=== PATIENT | female | born 1975 | race Caucasian/White ===

== ENCOUNTER 2019-07-10 08:50 | Outpatient (RCR) | payer OTHER, SELFPAY ==
--- NOTE | 2019-07-23 09:56 | PCPTNOTE ---
07/23/19 Annetta cancelled appt today. LJ
--- NOTE | 2019-07-30 09:20 | PCPTNOTE ---
07/30/19 patient did not show for scheduled appt. ANUM
--- NOTE | 2019-08-14 09:16 | PCPTNOTE ---
08/14/19 called and patient cancelled due to schedule conflict. RAIMUNDO
--- NOTE | 2019-10-13 08:44 | PCPTNOTE ---
10/13/19 - patient has not been to therapy in several weeks or months. patient has been called and no return calls have been made to finish out the POC. as of this date, patient will be DC'd from skilled PT and all progress towards goals will be taken from the most recent evaluation/note. HALEIGH
== END 2019-08-11 23:59 | disposition home or self-care (01) ==
LOC: CHSPT 08:50
PROVIDERS: Visit Provider Orthopaedic Surgery
DX: M25.562 Pain in left knee (principal); M75.41 Impingement syndrome of right shoulder
CPT/HCPCS: 97014; 97110; 97140; G0283

== ENCOUNTER 2020-01-20 09:55 | Outpatient (CLI) | payer OTHER, SELFPAY ==
[2020-01-20 10:06] LABS: Hematocrit 41.8 % (35.0-49.0); Hemoglobin 13.9 g/dL (12.0-15.0); Mean Corpuscular HGB Conc 33.3 g/dL (32.0-36.0); Mean Corpuscular Hemoglobin 29.1 pg (27.0-31.0); Mean Corpuscular Volume 87.6 fL (78.0-102.0); Mean Platelet Volume 9.9 fl (9.2-11.8); Platelet Count Result 317 K/mm3 (150-420); Red Blood Count 4.77 M/mm3 (4.20-5.40); Red Cell Distribution Width 13.1 % (11.6-14.4); White Blood Count 6.5 K/mm3 (4.8-10.8)
[2020-01-20 11:01] LABS: Alanine Aminotransferase 24 U/L (14-59); Alkaline Phosphatase 71 U/L (46-116); Anion Gap 14.6 mmol/L (7-16); Aspartate Amino Transferase 16 U/L (15-37); Bilirubin,Total 0.5 mg/dL (0.00-1.00); Blood Urea Nitrogen 18 mg/dL (7-18); Calcium 9.3 mg/dL (8.5-10.1); Carbon Dioxide 28 mmol/L (21-32); Chloride 104 mmol/L (98-108); Cholesterol 210 mg/dL (0-200); Estimated Glomerular Filt Rate > 60; Glucose 96 mg/dL (70-99); HDL Direct 47 mg/dL (40-60); LDL Cholesterol Calculated 143 mg/dL (<130); Osmolality Calculated 295 mOsm/kg (285-295); Potassium 4.6 mmol/L (3.5-5.1); Sodium 142 mmol/L (136-145); Triglycerides 102 mg/dL (0-150)
[2020-01-20 11:04] LABS: Thyroid Stimulating Hormone Reflex 2.32 u/IU/mL (0.36-3.74)
== END 2020-01-20 09:56 | disposition home or self-care (01) ==
LOC: CHSLAB 09:59
PROVIDERS: PCP Family Medicine; Visit Provider Family Medicine
DX: F32.9 Major depressive disorder, single episode, unspecified (principal)
CPT/HCPCS: 36415; 80053; 80061; 84443; 85027

== ENCOUNTER 2020-02-16 15:11 | Outpatient (RCR) | payer OTHER, SELFPAY ==
--- NOTE | 2020-02-16 16:12 | PTOPEVAL ---
Thank you for referring Annetta Goldstein to [facility]. Please review, sign, date and return this plan of care MARY. I agree with and certify that the following plan of care is medically necessary. Referring Physician Date Admitting Provider: Attending Provider: PHYSICIAN NOT ON STAFF Referring Provider: *PT Outpatient Evaluation Start: 02/16/20 15:18 Freq: Status: Active Protocol: Document 02/16/20 15:15 Pal (Rec: 02/16/20 15:56 [facility] [email or web address]) Therapy Assessment Status Assessment Status Assessment Status Evaluation Evaluation Information Problem Diagnosis R shoulder s/p labral and biceps surgery Onset 02/08/20 Additional Evaluation Detail quick dash = Subjective Information patient reports she initially Query Text:As Reported By Patient/ injured the R shoulder about 1 Family year ago. she reports she did therapy a fews times, but ultimately had surgery on the R shoulder on 02/08/20. she reports she had some work done to her labrum and her biceps tendon, but reports she is not exaclty sure what was repaired or how. she reports she is not wearing a sling at this time. she reports she does not believe she has any restrictions. Prior Level of Function Comments Additional Prior Level of Function prior to surgery, patient had Comments pain in the R shoulder and was increased in pain with all home, rec, and self care activities. Pain Assessment Timing of Pain Assessment Timing of Pain Assessment Assessment Pain Scale Pain Scale Used Numeric (1 - 10) Self Report Pain Assessment Right Shoulder(s) Reported Pain Level 2 Pain Description Aching,Dull Lowest Pain Intensity 1 Greatest Pain Intensity 4 Pain Score Pain Score 2: Self Report Upper Extremity Range of Motion Scapular/ Shoulder Range of Motion Right Shoulder Flexion - Active 85 Shoulder Flexion - Passive 130 Shoulder Medial Rotation - Active 70 Shoulder Medial Rotation - Active not tested Query Text:Reach Behind the Back Shoulder Lateral Rotation - Active 60 Shoulder Lateral Rotation - Active not tested Query Text:Reach Behind the Head Left Shoulder Flexion - Active 155 Shoulder Flexion - Passive
--- NOTE | 2020-03-28 11:30 | PTOPEVAL ---
Thank you for referring Annetta Goldstein to [facility]. Please review, sign, date and return this plan of care MARY. I agree with and certify that the following plan of care is medically necessary. Referring Physician Date Admitting Provider: Attending Provider: PHYSICIAN NOT ON STAFF Referring Provider: *PT Outpatient Evaluation Start: 02/16/20 15:18 Freq: Status: Active Protocol: Document 03/28/20 11:18 [facility] (Rec: 03/28/20 11:30 [facility] [email or web address]) Therapy Assessment Status Assessment Status Assessment Status Progress Evaluation Information Problem Subjective Information Pt. reports she notes mobility Query Text:As Reported By Patient/ improving. She reports still Family having difficulty with reaching behind her back. She states that Pain Assessment Pain Scale Pain Scale Used Numeric (1 - 10) Self Report Pain Assessment Right Shoulder(s) Reported Pain Level 2 Pain Score Pain Score 2: Self Report Upper Extremity Range of Motion General Upper Extremity Range of Motion Gross Upper Extremity Range of Motion right shoulder flexion 160 Comments degrees, right shoulder ER 80 degrees, right shoulder IR 68 degrees Upper Extremity Muscle Strength Testing General Upper Extremity Strength Gross Upper Extremity Strength Comments right shoulder flexion 4/5, right shoulder ER 4+/5, Pt. continues to be restricted in regards to protocol for strength advancements. PT Clinical Summary Clinical Summary Protocol: PTEVCODE PT Clinical Summary Pt. continues to progress towards all goals. She continues to present with weakness indicating need for continued treatment to maximize function. Continued treatment is indicated in order to continue to progress towards all remaining goals. PT Services Indicated Yes Rehabilitation Potential Excellent Potential Barriers to Goal Achievements None Support Requirements For Optimal None [place] Patient/Caregiver Informed of Benefits/ Yes Risks of Rehabilitation Patient/Caregiver Participated in Plan Yes of Care Patient/Caregiver Agreed with Problem Yes List/POC/Goals Treatment Frequency and Duration 1x/week x [address] of Service Place of Service
--- NOTE | 2020-04-20 10:06 | PTOPEVAL ---
Thank you for referring Annetta Goldstein to [facility]. Please review, sign, date and return this plan of care MARY. I agree with and certify that the following plan of care is medically necessary. Referring Physician Date Admitting Provider: Attending Provider: PHYSICIAN NOT ON STAFF Referring Provider: *PT Outpatient Evaluation Start: 02/16/20 15:18 Freq: Status: Active Protocol: Document 04/20/20 09:00 [facility] (Rec: 04/20/20 10:02 [facility] [email or web address]) Therapy Assessment Status Assessment Status Assessment Status Re-evaluation Evaluation Information Problem Diagnosis s/p R labral and biceps surgeries Subjective Information patient reports she feels Query Text:As Reported By Patient/ good this date. she reports Family she has just been to her MD for follow up and was suggested to continue skilled PT. 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 Pain Assessment Timing of Pain Assessment Timing of Pain Assessment Assessment Self Report Self Report Pain Level 0 Pain Score Pain Score 0: Self Report Upper Extremity Range of Motion Scapular/ Shoulder Range of Motion Right Shoulder Flexion - Active 155 Shoulder Medial Rotation - Active 78 Shoulder Lateral Rotation - Active 68 Scapular/Shoulder Range of Motion patient reports increased pain Comments /tightness with ER to end rom of the R shoulder. Upper Extremity Muscle Strength Testing Scapular/Shoulder Right Shoulder Flexion Strength 4 Good Shoulder Abduction Strength 4- Good - Shoulder Medial Rotation Strength 4+ Good + Shoulder Lateral Rotation Strength 4 Good Elbow/Forearm Right Elbow Flexion Strength 4 Good Elbow Extension Strength 4+ Good + Palpation Assessment Palpation Palpation closed and soft/well healed curgical incisions of the R shoulder. PT Clinical Summary Clinical Summary Protocol: PTEVCODE PT Clinical Summary mrs. goldstein tolerates therapy well this date. she is progressing with her strength and rom of the R shoulder, despite some continued pain and discomfort at end ROM R shoulder ER. a
== END 2020-05-23 11:21 | disposition home or self-care (01) ==
LOC: CHSPT 15:11
PROVIDERS: PCP Family Medicine
DX: S43.431A Superior glenoid labrum lesion of right shoulder, initial encounter (principal); M75.111 Incomplete rotator cuff tear or rupture of right shoulder, not specified as traumatic
CPT/HCPCS: 97014; 97110; 97140; 97161; G0283

== ENCOUNTER 2020-05-23 09:17 | Outpatient (RCR) | payer OTHER, SELFPAY | END 2020-05-23 09:48 | disposition home or self-care (01) | LOC: CHSPT 09:17 | DX: Z53.8 Procedure and treatment not carried out for other reasons (principal) | CPT/HCPCS: 99199 ==

== ENCOUNTER 2020-11-09 09:52 | Outpatient (CLI) | payer OTHER, SELFPAY ==
--- NOTE | ~2020-11-09 | XR_ITS ---
EXAMINATION: XR hand LT 2V, XR hand RT 2V DATE: 11/09/2020 10:22 INDICATION: Chronic joint pain at the bilateral hands. Assess for rheumatoid arthritis. TECHNIQUE: 1. Posteroanterior and lateral views of the left hand were obtained. 2. Posteroanterior and lateral views of the right hand were obtained. COMPARISON: Left hand radiographs dated 02/18/2012 FINDINGS: Alignment is normal at the bilateral hands. No fractures. Joint spaces are relatively preserved throu ghout both hands. No erosions to suggest an inflammatory arthritis such as rheumatoid arthritis. Soft tissues are unremarkable. IMPRESSION: 1. No osseous abnormality at either hand. Specifically no joint space narrowing or erosions to sugges t an inflammatory arthritis such as rheumatoid. Reviewed, dictated and finalized at location B. [employer] ENGINE OPERATOR IMPRESSION: 1. No osseous abnormality at either hand. Specifically no joint space narrowing or erosions to suggest an inflammatory arthritis such as rheumatoid.
[2020-11-09 10:14] LABS: Hematocrit 39.7 % (35.0-49.0); Hemoglobin 13.3 g/dL (12.0-15.0); Mean Corpuscular HGB Conc 33.5 g/dL (32.0-36.0); Mean Corpuscular Hemoglobin 28.5 pg (27.0-31.0); Mean Corpuscular Volume 85.2 fL (78.0-102.0); Mean Platelet Volume 10.2 fl (9.2-11.8); Platelet Count Result 324 K/mm3 (150-420); Red Blood Count 4.66 M/mm3 (4.20-5.40); Red Cell Distribution Width 12.8 % (11.6-14.4); White Blood Count 6.7 K/mm3 (4.8-10.8)
[2020-11-09 10:52] LABS: Alanine Aminotransferase 30 U/L (14-59); Albumin Level 4.1 g/dL (3.4-5.0); Alkaline Phosphatase 70 U/L (46-116); Anion Gap 9 mmol/L (8-16); Aspartate Amino Transferase 21 U/L (15-37); Bilirubin,Total 0.6 mg/dL (0.00-1.00); Blood Urea Nitrogen 13 mg/dL (7-18); Calcium 9.1 mg/dL (8.5-10.1); Carbon Dioxide 26 mmol/L (21-32); Chloride 105 mmol/L (98-108); Estimated Glomerular Filt Rate > 60; Glucose 78 mg/dL (70-99); Osmolality Calculated 289 mOsm/kg (285-295); Potassium 4.3 mmol/L (3.5-5.1); Sodium 140 mmol/L (136-145); Total Protein 6.8 g/dL (6.4-8.2)
[2020-11-09 10:57] LABS: CRP < 0.2 mg/dL (0.0-0.9)
[2020-11-09 11:14] LABS: Erythrocyte Sedimentation Rate 5 mm/hr (0-15)
[2020-11-09 11:17] LABS: Rheumatoid Factor Screen Negative (Negative)
[2020-11-11 11:05] LABS: ANA Cascade Screen Negative (Negative)
== END 2020-11-09 09:53 | disposition home or self-care (01) ==
LOC: CHSLAB 09:56
PROVIDERS: PCP Family Medicine; Visit Provider Family Medicine
DX: M06.9 Rheumatoid arthritis, unspecified (principal)
CPT/HCPCS: 36415; 73120; 80053; 85027; 85652; 86038; 86140; 86430

== ENCOUNTER 2021-08-30 13:30 | Outpatient (CLI) | payer OTHER, SELFPAY ==
[2021-08-30 14:38] LABS: SARS-CoV-2 RNA PCR Negative (Negative)
== END 2021-08-30 13:31 | disposition home or self-care (01) ==
LOC: CHSLAB 13:32
PROVIDERS: PCP Family Medicine; Visit Provider Family Medicine
DX: J02.9 Acute pharyngitis, unspecified (principal)
CPT/HCPCS: C9803; U0003; U0005

== ENCOUNTER 2021-09-03 21:02 | Emergency (ER) | payer OTHER, SELFPAY ==
--- NOTE | ~2021-09-03 | XR_ITS ---
EXAMINATION: XR chest 2V EXAM DATE: 09/03/2021 23:07 INDICATION: Cough. TECHNIQUE: Frontal and lateral projections of the chest obtained and reviewed. There is no prior jerry dy for comparison. FINDINGS: The lungs are clear. There are no pleural effusions. The cardiomediastinal silhouette is within normal limits. There is no pneumothorax suspected. The bones and soft tissues are unremarkab le. There are cholecystectomy clips. IMPRESSION: No acute cardiopulmonary findings. Reviewed, dictated and finalized at location A. REPAIRMAN
[2021-09-03 21:05] VITALS: BP 132/71; PULSE 79; RESP 20; TEMP 36.4; O2SAT 95
--- NOTE | 2021-09-03 21:35 | PC.NURSE ---
covid nasal swab obtained and sent to lab.
--- NOTE | 2021-09-03 21:39 | ED.URI ---
HPI - URI/Sore Throat General Chief Complaint: Upper Respiratory Infection Stated Complaint: cough Time Seen by Provider: 09/03/21 21:30 Source: patient Mode of arrival: ambulatory Limitations: no limitations History of Present Illness HPI Narrative: 46-year-old woman comes in today complaining of 1 week of progressively worsening cough and now some rattling in her chest. Patient states that a week ago she began to have rhinorrhea, nasal congestion, fatigue. She has a 3-year-old grandson who had similar symptoms. She did a home COVID test which was negative. She denies history of smoking, lung disease and heart disease. She denies shortness of breath, fever, vomiting, chest pain. MD elicited complaint: cough, rhinorrhea and nasal congestion Onset (ago): week(s) (1) Consistency: constant and progressively worsening Severity: moderate Able to tolerate fluids by mouth: Yes Exacerbating factors: nothing Relieving factors: nothing Context: sick contacts Associated symptoms: rhinorrhea, nasal congestion and cough Treatments prior to arrival: cold medicine Related Data Allergies Allergy/AdvReac Type Severity Reaction Status Date / Time No Known Allergies Allergy Mild Verified 11/09/20 07:38 Review of Systems Review of Systems: All systems reviewed & are unremarkable except as noted in HPI and below Constitutional: Constitutional: Denies chills, Reports fatigue, Denies fever(s) and Denies weakness Eyes: Eyes: Denies change in vision and Denies photophobia ENT: Reports nasal congestion and Denies sore throat Cardiovascular: Cardiovascular: Denies chest pain and Denies radiating jaw, neck or arm pain Respiratory: Respiratory: Reports chest congestion, Reports cough, Denies dyspnea and Denies wheezing Gastrointestinal: Gastrointestinal: Denies abdominal pain, Denies diarrhea, Denies nausea and Denies vomiting Integumentary/Breasts: Skin/Breast: Denies pruritus, Denies erythema and Denies rash Neurologic: Denies vertigo, Denies dizziness and Denies syncope Hematologic/Lymphatic: Hematologic/Lymphatic: Denies easy bleeding and Denies easy bruising Allergic/Immunologic: Allergic/Immunologic: Denies lip swelling and Denies throat swelling PMFSH Past Medical History Medical History (Updated 09/03/21 @ 23:22 by Lakhwinder Aaron MD) Depression Overweight Surgical History Surgical History History of cholecystectomy History of hysterectomy Family History Family History Other Hypertension Social History Social History Smoking status: Never smoker Alcohol intake: current Alcohol use details: social Substance use: never Substance use type: does not use Additional living arrangements comments: . 3 Children. 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 HENMT: Head: normal to inspection Ears: external ears normal and EAC's normal General nose exam: Normal nares present Face and sinus: normal facial exam Mouth: Yes moist mucous membranes Throat: posterior oropharynx normal Eyes: Conjunctivae: conjunctivae normal Pupils: Equal, round and reactive pupils present EOM: EOMs intact bilaterally Resp: Effort & Inspection: normal respiratory effort and not labored Auscultation: clear to auscultation bilaterally, no rales, no rhonchi and wheezes ( Bibasilar expiratory with air trapping) Cardio: Rate: regular rate Rhythm: regular rhythm Heart sounds: no murmurs Skin: General skin exam: normal color, no jaundice and no pallor Rashes: no rashes Neuro: General: patient oriented x3, moves all
[2021-09-03 22:18] LABS: SARS-CoV-2 RNA PCR Negative (Negative)
[2021-09-03 22:25] VITALS: BP 120/87; PULSE 85; RESP 18; O2SAT 96
[2021-09-03] MEDS: BENZONATATE 100 MG CAPSULE 200 MG PO (23:10)
[2021-09-03 23:28] VITALS: BP 124/78; PULSE 88; RESP 18; TEMP 36.6; O2SAT 100
== END 2021-09-03 23:33 | disposition home or self-care (01) ==
PROVIDERS: Emergency Provider Emergency Medicine; PCP Family Medicine
DX: J06.9 Acute upper respiratory infection, unspecified (principal); J98.01 Acute bronchospasm; Z20.822 Contact with and (suspected) exposure to COVID-19
CPT/HCPCS: 71046; 99283; A9270; C9803; U0003; U0005

== ENCOUNTER 2021-10-02 09:26 | Outpatient (CLI) | payer OTHER, SELFPAY ==
[2021-10-02 10:37] LABS: Cholesterol 178 mg/dL (0-200); HDL Direct 42 mg/dL (40-60); LDL Cholesterol Calculated 119 mg/dL (<130); Triglycerides 87 mg/dL (0-150)
== END 2021-10-02 09:27 | disposition home or self-care (01) ==
LOC: CHSLAB 09:27
PROVIDERS: PCP Family Medicine; Visit Provider Family Medicine
DX: Z00.00 Encounter for general adult medical examination without abnormal findings (principal)
CPT/HCPCS: 36415; 80061

== ENCOUNTER 2021-11-03 07:44 | Outpatient (CLI) | payer OTHER, SELFPAY ==
--- NOTE | 2021-11-12 02:14 | WPDSLEEPSTUD ---
Sleep Study Date of Study: 11/03/21 Ordering Provider: Jose Carlos Marroquin DO Interpreting Physician: Gosia Olivas DO Sleep Study Type: Split Polysomnogram Height: 1.68 m Weight: 111.13 kg Body Mass Index: 39.5 Neck Circumference (inches): 16.5 [place]: 20 Reason for Sleep Study The patient has a history of WILMA but is not currently on PAP Therapy. She has unrefreshing sleep and daytime hypersomnia. Sleep History The patient is a 46-year-old female that had a sleep study ordered by her primary care due to previous history of sleep apnea. 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 She states that she has had multiple nighttime awakenings, unrefreshing sleep and lack of sleep. The patient constantly awakens from sleep short of breath. She denies awakening at night with heartburn, belching or cough. She constantly snores loud enough that others complain. She constantly has trouble sleeping when she has a cold. She constantly wakes up gasping for air throughout the night. She constantly has breathing problems at night observed by others. She denies sweating excessively at night. She constantly falls asleep during the day. She rarely falls asleep while driving. She frequently has trouble at work due to sleepiness. She denies sleep paralysis and cataplexy. She rarely experiences vivid dream like scenes upon awakening or falling asleep. She denies having nightmares. She occasionally has thoughts racing through her mind. She constantly feels sad or depressed. She constantly has anxiety. She rarely notices parts of her body jerk. She constantly kicks during the night. She constantly experiences crawling aching feelings in her legs as well as leg pain during the night. She is unsure if she grinds her teeth during sleep and denies awakening in the morning. Pain. She is occasionally bothered by pain during the day but rarely awakened by pain during the night. She frequently wakes up feeling stiff in the morning. She occasionally wakes up with Sore a cane muscles. She frequently wakes up with pain in her neck, spine and other sleep. She goes to bed between 9 and 10:00 p.m. of both weekdays and weekends. It takes her an hour to fall asleep. She wakes up 3-4 times throughout the night to use the restroom and get a drink. She is able to fall back asleep within 5-10 minutes. She wakes up between 6 and 7:00 a.m. on the weekdays and between 7 and 8:00 a.m. on the weekends. She typically gets 4-6 hours of sleep per night. She does not stay in bed after waking up in the morning. She currently lives with her spouse, child and 2 grandchildren. She does consume caffeinated beverages within 2 hours of bedtime. She does not engage in physical exercise before bedtime. She will watch television before falling asleep. She will take naps in the afternoon or the evening of time allows. The naps are refreshing. The patient drinks 64 oz of caffeinated beverage per day. She drinks 1-2 alcoholic beverages per month. He denies tobacco and recreational drug use. [facility] Past Medical History Medical History (Updated 11/12/21 @ 02:45 by Gosia Olivas DO) Depression Overweight Surgical History Surgical History History of cholecystectomy History of hysterectomy Family History Family History Other Hypertension Social History Social History Smoking status: Never smoker Alcohol intake: current Alcohol use details: social Substance use: never Substance use type: does not use Additional living arrangements comments: . 3 Children. Additional occupation/education comments: [employer] business Gender identity (if verbalized by the patient): Female Medications Home Medications Medication Instructions Recorded Confirmed Type
[2021-11-13 11:35] VITALS: BMI 39.5
== END 2021-11-04 07:35 | disposition home or self-care (01) ==
LOC: ANHCSM 07:45
PROVIDERS: PCP Family Medicine; Visit Provider Family Medicine
DX: G47.30 Sleep apnea, unspecified (principal); G47.33 Obstructive sleep apnea (adult) (pediatric)
CPT/HCPCS: 95811

== ENCOUNTER 2021-11-06 11:24 | Outpatient (CLI) | payer OTHER, SELFPAY ==
[2021-11-08 12:44] LABS: TB Skin Test Induration 0 mm (0-10); TB Skin Test Site Left Arm
[2021-11-08 12:45] LABS: TB Skin Test Erythema 0 mm; TB Skin Test Interpretation Negative (Negative)
== END 2021-11-06 11:25 | disposition home or self-care (01) ==
LOC: CHSLAB 11:26
PROVIDERS: PCP Family Medicine; Visit Provider Family Medicine
DX: Z00.00 Encounter for general adult medical examination without abnormal findings (principal)
CPT/HCPCS: 36415; 86580

== ENCOUNTER 2022-04-25 12:32 | Emergency (ER) | payer OTHER, SELFPAY ==
[2022-04-25] VITALS (24 sets, daily range): BP systolic 118–140; BP diastolic 63–97; PULSE 51–87; RESP 11–25; TEMP 36.4; O2SAT 95–99
--- NOTE | ~2022-04-25 | XR_ITS ---
EXAMINATION: XR chest 1V portable 04/25/2022 13:23 INDICATION: Chest pain PROCEDURE: AP portable chest COMPARISON: 09/03/2021 FINDINGS: The lungs are clear. The cardiomediastinal silhouette is within normal limits. There are no pleural effusions. There is no pneumothorax suspected. IMPRESSION: 1: NO ACUTE CARDIOPULMONARY DISEASE. Reviewed, dictated and finalized at location B.
--- NOTE | ~2022-04-25 | CT_ITS ---
EXAMINATION: CT BRAIN W/O DATE: 04/25/2022 13:23 INDICATION: Weakness. Headache. TECHNIQUE: Computed tomography (CT) of the head was performed without intravenous contrast. The dose- length product was 605.33 mGy-cm. Automated exposure control and iterative reconstruction technique w ere employed. COMPARISON: No prior studies for comparison. FINDINGS: Normal brain parenchymal volume for age. Normal londono-white differentiation. No acute intrac ranial hemorrhage, infarction, mass or mass effect. No ventriculomegaly or midline shift. Midline sagittal images demonstrate a normal corpus callosum, c raniovertebral junction and sella turcica. Basilar cisterns are patent. Paranasal sinuses and mastoids are pneumatized. No depressed skull fractures. IMPRESSION: 1. No acute intracranial abnormality. Reviewed, dictated and finalized at location B.
--- NOTE | ~2022-04-25 | CT_ITS ---
EXAMINATION: CTA brain carotid DATE: 04/25/2022 15:37 INDICATION: Speech deficit. Loss of balance. Posterior head pressure. TECHNIQUE: Computed tomographic angiography (CTA) of the head was performed with 100 mL Omnipaque-350 intravenous contrast. CTA of the neck was performed with intravenous contrast. Automated exposure co ntrol and iterative reconstruction technique were employed. The dose-length product was 1219.27 mGy-c m. Maximum intensity projection and volume rendered 3D-reconstructions were created by the technologi st on a separate workstation. COMPARISON: Head CT 04/25/2022 FINDINGS: HEAD CTA: There is no intracranial hemorrhage, acute infarction, or abnormal intracranial mass lesion . The ventricles are normal in size. The orbits are normal. The paranasal sinuses are clear. The mast oid air cells are normal. The vertebral arteries are codominant. There is no significant stenosis of basilar artery or the posterior cerebral arteries. The posterior communicating arteries are normal. T here is no significant stenosis of the intracranial internal carotid arteries or anterior or middle c erebral arteries. Anterior communicating artery is normal. There is no aneurysm. NECK CTA: There are no pathologically enlarged lymph nodes. There is no significant stenosis of the v ertebral arteries. There is minimal plaque in the proximal internal carotid arteries. There is 0% summer nosis of the proximal right internal carotid artery relative to normal distal artery lumen diameter ( NASCET criteria). There is 0% stenosis of the proximal left internal carotid artery relative to michelle l distal artery lumen diameter. There is mild cervical spondylosis. IMPRESSION: 1. Normal brain. No aneurysm or significant intracranial arterial stenosis. 2. 0% stenosis of the proximal internal carotid arteries relative to normal distal artery lumen diame ters (NASCET criteria). Reviewed, dictated and finalized at location A. IMPRESSION: 1. Normal brain. No aneurysm or significant intracranial arterial stenosis. 2. 0% stenosis of the proximal internal carotid arteries relative to normal dis jerrod artery lumen diameters (NASCET criteria).
--- NOTE | 2022-04-25 12:47 | ECG_ITS ---
Measurements Intervals [place] Rate: 59 P: 55 MN: 185 QRS: 38 QRSD: 94 T: 45 QT: 423 QTc: 419 Interpretive Statements SINUS BRADYCARDIA NORMAL ECG NO PREVIOUS ECG AVAILABLE FOR COMPARISON Electronically Signed On 04-25-2022 14:05:32 CDT by Ti Grant M.D.
[2022-04-25] MEDS: SODIUM CHLORIDE 0.9% IV 1,000 ML 999 ML IV CONT (13:02)
[2022-04-25 13:10] LABS: Basophils Absolute Auto 0.02 K/mm3 (0.00-0.10); Basophils Percent Auto 0.3 % (0.0-1.0); Eosinophils Absolute Auto 0.07 K/mm3 (0.02-0.50); Eosinophils Percent Auto 1.1 % (1.0-6.0); Hemoglobin 13.1 g/dL (12.0-15.0); Immature Granulocyte Absolute 0.02 K/mm3 (0.00-0.00); Immature Granulocyte Percent A 0.3 % (0.0-0.0); Lymphocytes Absolute Auto 2.37 K/mm3 (1.10-4.50); Lymphocytes Percent Auto 37.1 % (18.0-42.0); Mean Corpuscular HGB Conc 32.8 g/dL (32.0-36.0); Mean Corpuscular Hemoglobin 28.7 pg (27.0-31.0); Mean Corpuscular Volume 87.7 fL (78.0-102.0); Mean Platelet Volume 10.1 fl (9.2-11.8); Monocytes Absolute Auto 0.45 K/mm3 (0.10-0.90); Monocytes Percent Auto 7.1 % (2.0-11.0); Neutrophils Absolute Auto 3.5 K/mm3 (1.7-7.2); Neutrophils Percent Auto 54.1 % (50.0-70.0); Platelet Count Result 324 K/mm3 (150-420); Red Blood Count 4.56 M/mm3 (4.20-5.40); Red Cell Distribution Width 13.2 % (11.6-14.4); White Blood Count 6.4 K/mm3 (4.8-10.8)
[2022-04-25 13:28] LABS: Alanine Aminotransferase 22 U/L (14-59); Albumin Level 3.9 g/dL (3.4-5.0); Alkaline Phosphatase 71 U/L (46-116); Anion Gap 9 mmol/L (8-16); Aspartate Amino Transferase 14 U/L (15-37); Bilirubin,Total 0.5 mg/dL (0.00-1.00); Blood Urea Nitrogen 15 mg/dL (7-18); Calcium 8.8 mg/dL (8.5-10.1); Carbon Dioxide 25 mmol/L (21-32); Chloride 106 mmol/L (98-108); Estimated CRCL calculation 103 ml/min; Estimated Glomerular Filt Rate > 60; Glucose 99 mg/dL (70-99); Osmolality Calculated 290 mOsm/kg (285-295); Potassium 4.2 mmol/L (3.5-5.1); Salicylate 0.4 mg/dL (2.8-20.0); Sodium 140 mmol/L (136-145); Total Protein 6.7 g/dL (6.4-8.2)
[2022-04-25 13:29] LABS: Acetaminophen < 2 ug/mL (10-30); Ethanol < 3 mg/dL (0-6)
[2022-04-25 13:59] LABS: Thyroid Stimulating Hormone 1.36 uIU/mL (0.36-3.74)
--- NOTE | 2022-04-25 14:06 | PC.NURSE ---
PT TO RR WITH ASSISTANCE. PT DENIES DIZZINESS, HOWEVER IS UNSTEADY ON FEET. PT RR PER WC. PT IS AWAITING RESULTS. AT BEDSIDE. WILL CONTINUE TO MONITOR. NO CHANGE IN PT STATUS.
[2022-04-25 14:20] LABS: Amphetamine Screen Urine Negative (Negative); Barbiturate Screen Urine Negative (Negative); Benzodiazepines Screen Urine Negative (Negative); Cannabinoid Screen Urine Negative (Negative); Cocaine Screen Urine Negative (Negative); Methadone Screen Urine Negative (Negative); Opiate Screen Urine Negative (Negative); Phencyclidine Screen Urine Negative (Negative)
--- NOTE | 2022-04-25 15:23 | ED.WEAKNESS ---
HPI - Weakness General Chief complaint: Weakness Stated complaint: TIRED HANDS TINGLING HEADACHE Time Seen by Provider: 04/25/22 12:36 Source: patient, family and RN notes reviewed Mode of arrival: ambulatory Limitations: no limitations History of Present Illness HPI Narrative: also speech deficit, persistent MD Complaint: generalized weakness, numbness, tingling and difficulty walking Onset (ago): hour(s) (5) Duration: constant Location: generalized Migration: none Severity: moderate Severity scale (1-10): 3 Quality: tingling and numbness Relieving factors: none Exacerbating factors: none Context: history of similar Associated symptoms: headaches and loss of appetite Related Data Home Medications Medication Instructions Recorded Confirmed No Home Medications 04/25/22 04/25/22 Allergies Allergy/AdvReac Type Severity Reaction Status Date / Time No Known Allergies Allergy Mild Verified 04/25/22 12:46 Review of Systems Review of Systems: All systems reviewed & are unremarkable except as noted in HPI and below Constitutional: Constitutional: Reports no additional constitutional complaints and Reports weakness Eyes: Eyes: Reports no additional eye complaints ENT: Reports system reviewed and no additional complaints, except as documented Cardiovascular: Cardiovascular: Reports no additional cardiovascular complaints Respiratory: Respiratory: Reports no additional respiratory complaints Gastrointestinal: Gastrointestinal: Reports no additional gastrointestinal complaints Genitourinary: Genitourinary: Reports no additional female genitourinary complaints Musculoskeletal: Musculoskeletal: Reports no additional musculoskeletal complaints Integumentary/Breasts: Skin/Breast: Reports system reviewed and no additional complaints, except as docu Neurologic: Reports system reviewed and no additional complaints, except as documented Comments: speech deficit, no facial droop Psychiatric: Psychiatric: Reports no additional psychiatric complaints Endocrine: Endocrine: Reports no additional endocrine complaints Hematologic/Lymphatic: Hematologic/Lymphatic: Reports no additional hematologic/lymphatic complaints Allergic/Immunologic: Allergic/Immunologic: Reports no additional allergic/immunologic complaints PMFSH Past Medical History Medical History (Updated 04/25/22 @ 15:53 by Olive Lunsford MD) CVA (cerebral vascular accident) Depression Overweight Surgical History Surgical History History of cholecystectomy History of hysterectomy Family History Family History Other Hypertension Social History Social History (Reviewed 12/28/21 @ 15:21 by ROYCE Blank Smoking status: Never smoker Alcohol intake: current Alcohol use details: social Substance use: never Substance use type: does not use Additional living arrangements comments: . 3 Children. 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 Gender identity (if verbalized by the patient): Female Exam Const: General: healthy appearing and no acute distress Nutritional Appearance: well nourished Orientation/consciousness: patient oriented x3 Limitations: no limitations HENMT: Head: normal to inspection Ears: external ears normal, TM's normal bilaterally and EAC's normal General nose exam: Normal external nose present and Normal nares present Face and sinus: normal facial exam and sinuses nontender Mouth: Yes Normal oral and palatal mucosa present and Yes moist mucous membranes Teeth and gingiva: dentition normal Throat: posterior oropharynx normal Eyes: Conjunctivae: conjunctivae normal Pupils: Equal, round and reactive pupils present EOM: EOMs intact bilaterally Neck: Neck: normal visual inspection, no lymphadenopathy and no meningeal signs Chest: Chest palpation &
--- NOTE | 2022-04-25 15:32 | PC.NURSE ---
PT RETURNS FROM CT AT THIS TIME. PT AND AWARE OF PLAN OF CARE. NO CHANGE IN PT STATUS, SHE CONTINUES TO HAVE DIFFICULTY SPEAKING, REPORTS EXHAUSTED AND TIRED. NO FACIAL DROOP, TONGUE DEVIATION, VISION CHANGES NOTED. GRAIN COMBINER CONTINUE TO BE EQUAL. STILL NO CONFUSION NOTED. PT IS AWAITING CT RESULTS FOR PLACEMENT. WILL CONTINUE TO MONITOR.
--- NOTE | 2022-04-25 16:34 | PC.NURSE ---
PT UP TO RR WITH ASSIST, NO CHANGE IN PT STATUS. PT REPORTS SHE AWOKE THIS AM AROUND 0730 WITH SX. DYSPHAGIA TEST PASSED, NO DIFFICULTY WITH SWALLOWING WATER.
--- NOTE | 2022-04-25 18:03 | PC.NURSE ---
1600 pt passed dysphagia screen without issues.
== END 2022-04-25 16:55 | disposition short-term general hospital (02) ==
PROVIDERS: Emergency Provider Emergency Medicine; PCP Family Medicine
DX: I63.9 Cerebral infarction, unspecified (principal)
CPT/HCPCS: 36415; 70450; 70496; 70498; 71045; 80053; 80307; 83605; 84443; 84484; 85025; 93005; 96360; 99285; J7030; Q9967

== ENCOUNTER 2022-04-25 17:28 | Observation (INO) | payer OTHER, SELFPAY ==
--- NOTE | ~2022-04-25 | MR_ITS ---
EXAMINATION: MR brain/brain stem wo/w con DATE: 04/26/2022 12:30 INDICATION: Stroke with dysarthria TECHNIQUE: Magnetic resonance imaging (MRI) of the brain and brainstem was performed without and with 20 mL Multihance intravenous contrast. Sequences included sagittal and axial T1-weighted SE, axial d iffusion-weighted FS SE, axial T2*-weighted GRE, axial 3D SWAN, axial T2-weighted FLAIR, and axial T2 -weighted FSE. Postcontrast axial, sagittal and coronal T1-weighted SE was obtained. Apparent diffusi on coefficient (ADC) maps were created. COMPARISON: CTA brain and carotid dated 04/25/2022 FINDINGS: There are no areas of restricted diffusion to suggest acute infarction. No intracranial hemorrhage or abnormal intracranial mass lesion. There are no intraparenchymal signal abnormalities seen on the ot her pulse sequences. The ventricles are symmetric and normal in size. There are no abnormal extra-axi al fluid collections. Flow voids are seen in the cerebral arteries on the T2-weighted sequences consi stent with their expected patency. Mild mucoperiosteal thickening in the bilateral ethmoid and maxill roc sinuses. Visualized orbits and soft tissues are unremarkable. There are no areas of abnormal enha ncement on the post contrast images. IMPRESSION: 1. Normal brain. No acute intracranial process. Reviewed, dictated and finalized at location A.
[2022-04-25 17:36] VITALS: BP 116/74; PULSE 56; RESP 16; TEMP 36.9; O2SAT 100; BMI 38.8
--- NOTE | 2022-04-25 17:46 | ADMGEN ---
This patient, Annetta Goldstein, was admitted to 3 Medical Room 343-01 @1730 . Patient/family oriented to hospital policies and general routines including ID bracelet, bed and alarms, visiting hours, pain management, procedures, bathroom and other care routines, personal items, smoking policy, room service/diet, and visiting hours. Information on how to activate the Rapid Response Team has been discussed. Patient/Family are encouraged to report perceived risks to care and to ask questions if they do not understand what they are told or what they should do.
[2022-04-25 17:51] VITALS: PULSE 56; RESP 16; O2SAT 100
--- NOTE | 2022-04-25 21:55 | PM.IMHP ---
H&P: HPI History of Present Illness Date/Time: 04/25/22 21:55 Chief Complaint: Dysarthria, malaise Narrative: Greater than 30 minute spent reviewing chart, evaluating, counseling patient. Anticipate less than 48 hour admission, will admit under observation. 47-year-old female past medical history of depression, WILMA on CPAP, GERD. Presents with dysarthria and significant malaise that started around 7:00 a.m. this morning. Patient states her grandson noted something was off with her, but did not tell her what. Her woke up around 9:30 a.m. this morning and noted dysarthria. Patient admits to significant malaise, however no focal weakness. She does admit to bilateral numbness and tingling in hands that is still ongoing. Patient denies blurry vision, headaches, sensation deficits. Patient reports she traveled to [place] last week for her son's wedding, [place] the [place]. Denies any hiking, no tick bites. Denies any rashes. No headaches or neck pain. No fevers or chills. Patient initially went to [place] ED CTA head neck negative for stenosis and CT head negative for acute intracranial pathology. EKG was sinus bradycardia. Patient does admit to chest pain last week while getting ready for bed, states it felt like chest pressure without radiation that lasted for about 30 minutes. Patient's reports she had a similar episode of dysarthria 10 years ago that was attributed to conversion disorder. 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 Patient does admit to anxiety but does not take anything for it or see anybody for it. Denies tobacco use, recreational drinking only. Patient transferred here for further evaluation. Review of Systems Review of Systems: Ten point ROS reviewed, negative unless otherwise specified per HPI [facility] Past Medical History Medical History (Updated 04/25/22 @ 22:08 by Obinna Nguyen DO) CVA (cerebral vascular accident) Depression Overweight Surgical History Surgical History History of cholecystectomy History of hysterectomy Family History Family History (Updated 04/25/22 @ 18:03 by Denice Brown RN) Sibling Hypertension Mother Hypertension Grandparent Cerebrovascular accident Father Cardiomyopathy Social History Social History Smoking status: Never smoker Alcohol intake: current Drinks per week: 0 Alcohol use details: social Substance use: never Substance use type: does not use Additional living arrangements comments: . 3 Children. 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 Gender identity (if verbalized by the patient): Female Spiritual care concerns: No Meds Home Medications and Allergies Home Medications Medication Instructions Recorded Confirmed Type No Home Medications 04/25/22 04/25/22 History Allergies Allergy/AdvReac Type Severity Reaction Status Date / Time No Known Allergies Allergy Mild Verified 04/25/22 21:45 Vital Signs Vital Signs - 24 hr 04/25/22 17:51 04/25/22 17:36 Temperature 98.4 F Pulse Rate 56 L 56 L Respiratory Rate 16 16 Blood Pressure 116/74 Pulse Oximetry 100 100 Oxygen Delivery Room Air Exam Const: General: comfortable and no acute distress HENMT: Mouth: Yes moist mucous membranes Other: large tongue Eyes: General: appearance normal, both eyes and all related structures Sclera: sclerae normal Pupils: Equal, round and reactive pupils present EOM: EOMs intact bilaterally Neck: Other: No bruit noted Resp: Effort & Inspection: normal respiratory effort Auscultation: clear to auscultation bilaterally Cardio: Rate: regular rate Rhythm: regular rhythm Other: No m
[2022-04-25 23:59] VITALS: BP 137/66; PULSE 60; RESP 16; TEMP 37.2; O2SAT 99
[2022-04-26] VITALS (12 sets, daily range): BP systolic 95–128; BP diastolic 51–76; PULSE 52–69; RESP 15–90; TEMP 36.4–37.1; O2SAT 96–99
--- NOTE | 2022-04-26 08:28 | WPDNEURCNPN ---
Assessment and Plan Assessment and plan (1) Dysarthria: Code(s): R47.1 - Dysarthria and anarthria Status: Acute Assessment and Plan: Ms. Goldstein is a 47 year old female with a history of anxiety presenting due to speech change. She has no other neurological symptoms and her neuro exam is non-focal. She has had a similar episode in the past that occurred in the setting of stressful situation with negative work-up and was diagnosed with conversion disorder. I am also suspecting a functional cause of her symptoms but will obtain more detailed neuroimaging to rule out brainstem lesion. - MRI brain w/wo contrast (2) Anxiety: Code(s): F41.9 - Anxiety disorder, unspecified Status: Acute Assessment and Plan: Patient is under quite a bit of stress lately. She has previously tried anti-anxiety medications, but does not remember which ones. - She is agreeable to see a Psychiatrist, please provide referral Consult date: 04/26/22 Reason for consult: Dysarthria HPI: Annetta Goldstein is a 47 year old female with a history of depression and WILMA presenting with generalized weakness and speech difficulty. Change in speech was noted yesterday morning around 730AM. Her grandson first pointed out that her speech seemed off but she did not realize at the time. A few hours later when she was speaking with her , the speech change became more noticeable to her. She denies any double vision, dysphagia, choking on foods, focal numbness or tingling. She was initially evaluated at [facility] ED where she had work-up of CTH and CTA both of which were negative. She was outside the window for tPA and suspicion for stroke was low as well. She was transferred to [facility] for further care. Patient reportedly has had a similar episode years ago and was diagnosed with conversion disorder. She is under a significant amount of stress and does not see anyone for it nor does she take any medications for it. Review of Systems Constitutional: Constitutional: Reports body ache(s) and Reports weakness Eyes: Eyes: Reports no additional eye complaints ENT: Reports Normal hearing present and Denies tinnitus Cardiovascular: Cardiovascular: Reports no additional cardiovascular complaints Respiratory: Respiratory: Reports no additional respiratory complaints Gastrointestinal: Gastrointestinal: Reports abdominal pain Genitourinary: Genitourinary: Reports no additional female genitourinary complaints Musculoskeletal: Musculoskeletal: Reports arthralgias Integumentary/Breasts: Skin/Breast: Reports system reviewed and no additional complaints, except as docu Neurologic: Reports as per HPI Psychiatric: Psychiatric: Reports anxiety PMFSH Past Medical History Medical History CVA (cerebral vascular accident) Depression Overweight Surgical History Surgical History History of cholecystectomy History of hysterectomy Family History Family History Sibling Hypertension Mother Hypertension Grandparent Cerebrovascular accident Father Cardiomyopathy Social History Social History Smoking status: Never smoker Alcohol intake: current Drinks per week: 0 Alcohol use details: social Substance use: never Substance use type: does not use Additional living arrangements comments: . 3 Children. Additional occupation/education comments: [employer] business Gender identity (if verbalized by the patient): Female Spiritual care concerns: No Meds Home Medications and Allergies Home Medications Medication Instructions Recorded Confirmed Type No Home Medications 04/25/22 04/25/22 History Allergies Allergy/AdvReac Type Severity Reaction Status Date / Time No Known Al
[2022-04-26] MEDS: ENOXAPARIN 40 MG/0.4 ML SYRINGE SUB-Q (09:37)
--- NOTE | 2022-04-26 11:17 | PCSTNOTE ---
Speech evaluation: Patient presents with dysarthria characterized by reduced rate of speech production, reduced strength of articulators resulting in imprecise consonant production (especially of fricatives and plosives), impaired rhythm and prosody of conversational speech and decreased intelligibility of words, phrases, sentences and conversational speech. Speech therapy is recommended. Thank you for the referral of this patient.
--- NOTE | 2022-04-26 16:25 | PM.IMPN ---
Progress Note: A&P Assessment and Plan (1) Dysarthria: Code(s): R47.1 - Dysarthria and anarthria Status: Acute Assessment and Plan: Suspect likely to conversion disorder, low suspicion of stroke. CTA head neck and CT head negative. Will consult Neuro for evaluation of MRI. Monitor on telemetry. Patient reports multiple stressors causing significant anxiety, management as below. 04/26/2022 interval history: patient had a CT scan of the head and CTA of the head both are essentially normal, to further evaluate patient had MRI of the brain which is essentially normal however patient continued to difficulty with speech and patient was seen by speech therapist recommended further evaluation and continue speech therapy patient has no difficulty with swallow, patient had a similar episode several years ago and was diagnosed with conversion syndrome, will continue to monitor patient is seen by Neurology and further recommendation to follow. (2) WILMA (obstructive sleep apnea): Code(s): G47.33 - Obstructive sleep apnea (adult) (pediatric) Status: Acute Assessment and Plan: Continue home CPAP settings (3) Anxiety: Code(s): F41.9 - Anxiety disorder, unspecified Status: Acute Assessment and Plan: Multiple stressors causing significant anxiety. Consultation on use of medications and therapy to help with anxiety concurrently. (4) Chest pain: Code(s): R07.9 - Chest pain, unspecified Status: Acute Assessment and Plan: Patient had 1 time about last week, no active chest pain. Consider workup as outpatient. Monitor on telemetry Subjective Date/time seen: 04/26/22 16:25 47-year-old female past medical history of depression, WILMA on CPAP, GERD.? Presents with dysarthria and significant malaise that started around 7:00 a.m. this morning.? Patient states her grandson noted something was off with her, but did not tell her what.? Her woke up around 9:30 a.m. this morning and noted dysarthria.? Patient admits to significant malaise, however no focal weakness.? She does admit to bilateral numbness and tingling in hands that is still ongoing.? Patient denies blurry vision, headaches, sensation deficits.? Patient reports she traveled to [place] last week for her son's wedding, which [place] the [place].? Denies any hiking, no tick bites.? Denies any rashes.? No headaches or neck pain.? No fevers or chills.? Patient initially went to [place] ED CTA head neck negative for stenosis and CT head negative for acute intracranial pathology.? EKG was sinus bradycardia.? Patient does admit to chest pain last week while getting ready for bed, states it felt like chest pressure without radiation that lasted for about 30 minutes.? Patient's reports she had a similar episode of dysarthria 10 years ago that was attributed to conversion disorder.? 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 Patient does admit to anxiety but does not take anything for it or see anybody for it.? Denies tobacco use, recreational drinking only.? Patient transferred here for further evaluation. 04/26/2022 interval history: patient had a CT scan of the head and CTA of the head both are essentially normal, to further evaluate patient had MRI of the brain which is essentially normal however patient continued to difficulty with speech and patient was seen by speech therapist recommended further evaluation and continue speech therapy patient has no difficulty with swallow, patient had a similar episode several years ago and was diagnosed with conversion syndrome, will continue to monitor patient is seen by Neurology and further recommendation to follow. Review of Systems Constitutional: Constitutional: Reports body ache(s) and Reports weakness Exam Narrative:
[2022-04-27] VITALS: PULSE 54
[2022-04-27 00:01] VITALS: RESP 19
[2022-04-27 04:00] VITALS: PULSE 52
[2022-04-27 05:58] VITALS: BP 115/59; PULSE 59; RESP 18; TEMP 36.4; O2SAT 98
[2022-04-27 08:00] VITALS: PULSE 58
--- NOTE | 2022-04-27 09:28 | PM.DS ---
DS: Admitting Diagnosis Discharge Date 04/27/2022 Admitting Diagnosis dysarthria DS: Discharge Diagnosis Discharge Diagnosis (1) Dysarthria: Code(s): R47.1 - Dysarthria and anarthria Status: Acute Assessment and Plan: Suspect likely to conversion disorder, low suspicion of stroke. CTA head neck and CT head negative. Will consult Neuro for evaluation of MRI. Monitor on telemetry. Patient reports multiple stressors causing significant anxiety, management as below. (2) WILMA (obstructive sleep apnea): Code(s): G47.33 - Obstructive sleep apnea (adult) (pediatric) Status: Acute Assessment and Plan: Continue home CPAP settings (3) Anxiety: Code(s): F41.9 - Anxiety disorder, unspecified Status: Acute Assessment and Plan: Multiple stressors causing significant anxiety. Consultation on use of medications and therapy to help with anxiety concurrently. (4) Chest pain: Code(s): R07.9 - Chest pain, unspecified Status: Acute Assessment and Plan: Patient had 1 time about last week, no active chest pain. Consider workup as outpatient. Monitor on telemetry DS: Summary Hospital Course Reason for hospitalization: 47-year-old female past medical history of depression, WILMA on CPAP, GERD.? Presents with dysarthria and significant malaise that started around 7:00 a.m. this morning.? Patient states her grandson noted something was off with her, but did not tell her what.? Her woke up around 9:30 a.m. this morning and noted dysarthria.? Patient admits to significant malaise, however no focal weakness.? She does admit to bilateral numbness and tingling in hands that is still ongoing.? Patient denies blurry vision, headaches, sensation deficits.? Patient reports she traveled to [place] last week for her son's wedding, which was [place] the [place].? Denies any hiking, no tick bites.? Denies any rashes.? No headaches or neck pain.? No fevers or chills.? Patient initially went to [place] ED CTA head neck negative for stenosis and CT head negative for acute intracranial pathology.? EKG was sinus bradycardia.? Patient does admit to chest pain last week while getting ready for bed, states it felt like chest pressure without radiation that lasted for about 30 minutes.? Patient's reports she had a similar episode of dysarthria 10 years ago that was attributed to conversion disorder.? 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 Patient does admit to anxiety but does not take anything for it or see anybody for it.? Denies tobacco use, recreational drinking only.? Patient transferred here for further evaluation. Hospital Course: ?patient had a CT scan of the head and CTA of the head both are essentially normal,? to further evaluate patient had MRI of the brain which is essentially normal however patient continued to difficulty with speech and patient was seen by speech therapist recommended further evaluation and continue speech therapy patient has no difficulty with swallow, patient had a similar episode several years ago and was diagnosed with conversion syndrome, will continue to monitor patient is seen by Neurology and further recommendation to follow. patient remains clinically stable, will discharge patient today patient will have a speech therapy as outpatient and follow-up with psychiatrist, patient will follow-up her primary care provider as soon as possible. Time Spent with Patient Time attestation: Total time spent providing and/or coordinating discharge services: Exam Narrative: morbidly obese Patient is comfortable, NAD HEENT: eyes are clear and none icteric, patient does have pressured speech LUNGS: normal respiratory effort ABD: distended Lower extremities: no edema SKIN: nonjaundiced Neuro: grossly intac
== END 2022-04-27 10:30 | disposition home or self-care (01) ==
PROVIDERS: Admitting Provider Internal Medicine; PCP Family Medicine; Visit Provider Family Medicine
DX: R47.1 Dysarthria and anarthria (principal); G47.33 Obstructive sleep apnea (adult) (pediatric); Z99.89 Dependence on other enabling machines and devices; F41.9 Anxiety disorder, unspecified; F32.A Depression, unspecified; R07.9 Chest pain, unspecified; K21.9 Gastro-esophageal reflux disease without esophagitis; R53.81 Other malaise; R20.0 Anesthesia of skin; R20.2 Paresthesia of skin; R00.1 Bradycardia, unspecified; E66.01 Morbid (severe) obesity due to excess calories; Z68.38 Body mass index [BMI] 38.0-38.9, adult; Z86.73 Personal history of transient ischemic attack (TIA), and cerebral infarction without residual deficits; Z90.49 Acquired absence of other specified parts of digestive tract; Z82.3 Family history of stroke; Z82.49 Family history of ischemic heart disease and other diseases of the circulatory system
CPT/HCPCS: 70553; 92522; 96372; A9577; G0378; G0379; J1650

== ENCOUNTER 2022-11-05 11:16 | Outpatient (CLI) | payer OTHER, SELFPAY ==
[2022-11-05 11:30] LABS: Hematocrit 37.9 % (35.0-49.0); Hemoglobin 12.6 g/dL (12.0-15.0); Mean Corpuscular HGB Conc 33.2 g/dL (32.0-36.0); Mean Corpuscular Volume 87.3 fL (78.0-102.0); Mean Platelet Volume 9.6 fl (9.2-11.8); Platelet Count Result 303 K/mm3 (150-420); Red Blood Count 4.34 M/mm3 (4.20-5.40); Red Cell Distribution Width 12.8 % (11.6-14.4); White Blood Count 6.5 K/mm3 (4.8-10.8)
[2022-11-05 12:01] LABS: CRP < 0.5 mg/dL (0.0-0.9)
[2022-11-05 12:26] LABS: Alanine Aminotransferase 38 U/L (14-59); Albumin Level 4.1 g/dL (3.4-5.0); Alkaline Phosphatase 78 U/L (46-116); Anion Gap 11 mmol/L (8-16); Aspartate Amino Transferase 24 U/L (15-37); Bilirubin,Total 0.4 mg/dL (0.00-1.00); Blood Urea Nitrogen 17 mg/dL (7-18); Calcium 9.2 mg/dL (8.5-10.1); Carbon Dioxide 27 mmol/L (21-32); Chloride 105 mmol/L (98-108); Estimated Glomerular Filt Rate > 60; Folic Acid 12.7 ng/mL (8.6->20); Glucose 97 mg/dL (70-99); Osmolality Calculated 297 mOsm/kg (285-295); Potassium 4.5 mmol/L (3.5-5.1); Sodium 143 mmol/L (136-145); Vitamin B12 307 pg/mL (193-986)
[2022-11-05 12:33] LABS: Rheumatoid Factor Screen Negative (Negative)
[2022-11-08 10:08] LABS: ANA Cascade Screen Negative (Negative)
== END 2022-11-05 11:17 | disposition home or self-care (01) ==
LOC: CHSLAB 11:17
PROVIDERS: PCP Family Medicine; Visit Provider Family Medicine
DX: E53.8 Deficiency of other specified B group vitamins (principal); E11.9 Type 2 diabetes mellitus without complications; R53.83 Other fatigue
CPT/HCPCS: 36415; 80053; 82607; 82746; 84443; 85027; 86038; 86140; 86430

== ENCOUNTER 2023-01-01 15:55 | Outpatient (CLI) | payer OTHER, SELFPAY ==
--- NOTE | ~2023-01-01 | XR_ITS ---
EXAMINATION: XR sacroiliac joints min 3V DATE: 01/01/2023 16:36 INDICATION: Chronic low back pain. TECHNIQUE: 3 views of the sacroiliac joints were obtained. COMPARISON: CT abdomen and pelvis 05/09/2016 FINDINGS: Bone alignment is normal. No fracture. The sacroiliac joints are normal. No evidence of inf lammatory arthropathy. IMPRESSION: 1. Normal sacroiliac joints. Reviewed, dictated and finalized at location A.
--- NOTE | ~2023-01-01 | XR_ITS ---
EXAMINATION: XR lumbar spine 2-3V DATE: 01/01/2023 16:35 INDICATION: Chronic low back pain. TECHNIQUE: 3 views of lumbar spine were obtained. COMPARISON: None. FINDINGS: There is 3 degrees dextrocurvature of lumbar spine. Vertebral body heights are normal. Inte rvertebral disc heights are normal. There are endplate osteophytes at multiple levels. There is multi level facet joint osteoarthritis, severe on the right at L4-L5. IMPRESSION: 1. Mild lumbar spondylosis. Reviewed, dictated and finalized at location A. IMPRESSION: 1. Mild lumbar spondylosis.
== END 2023-01-01 15:56 | disposition home or self-care (01) ==
LOC: CHSIMG 15:56
PROVIDERS: PCP Family Medicine; Visit Provider Family Medicine
DX: G89.29 Other chronic pain (principal); M54.50 Low back pain, unspecified; M43.06 Spondylolysis, lumbar region
CPT/HCPCS: 72100; 72202

== ENCOUNTER 2023-01-07 09:48 | Outpatient (RCR) | payer OTHER, SELFPAY ==
--- NOTE | 2023-01-07 10:30 | PTOPEVAL1 ---
Assessment and note entered by Joel Cross Evaluation Information Assessment Status Evaluation Diagnosis low back pain Onset 11/07/22 Subjective Information Pt. reports that she has noticed increasing low back pain over the past 2 months. She does recall a bout of divertculitis about the time her back pain started. She describes her pain in the middle of the lower back and pain stays localized to the low back. She reports that she has done chiropractic with no relief. She states that treatment consisted of electrical stimulation, adjustment and massage. 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 She does describe herself as being bent over to do her job. She states that pain can increase with prolonged periods of standing and sitting. She states that laying down for a duration will relieve her pain. She reports having to change positions frequently throughout the day. She reports noticing stiffness throughout the day. She states that her goal for therapy is to decrease her low back pain . Reported Pain Level Pain Score 3: Self Report Assessment PT Clinical Summary Pt. is a 47 year old female who enters the clinic with low back pain. She presents with proximal l. e. weakness, impaired gait, impaired postural awareness and pain on this date. Continued skilled PT is indciated in order to improve these area to allow for improved IADL performance. Plan of Care Interventions Electrical Stimulation,Hot Pack/Cold Pack,Manual Therapy,Neuro Re-education,Patient/Caregiver Educati,Therapeutic Activities,Therapeutic Exercise PT Services Indicated Yes Treatment Frequency and 2x/week x 12 visits Duration These treatments will address the objective and functional deficits as defined above. The patient will be advanced safely and appropriately in order for the patient to progress towards his/her prior level of function. Additional exercises will be introduced and as well as a comprehensive home exercise program upon discharge, if needed, ?to ensure carryover of functional gains achieved in the clinic. This treatment plan has been reviewed and agreement upon by the patient.
== END 2023-02-26 18:00 | disposition home or self-care (01) ==
LOC: CHSPT 09:48
PROVIDERS: PCP Family Medicine; Visit Provider Family Medicine
DX: M54.50 Low back pain, unspecified (principal); G89.29 Other chronic pain
CPT/HCPCS: 97012; 97014; 97110; 97112; 97140; 97161; G0283

== ENCOUNTER 2023-01-08 09:16 | Outpatient (CLI) | payer OTHER, SELFPAY ==
--- NOTE | ~2023-01-08 | CT_ITS ---
CT of the Abdomen and Pelvis: Indication: Abdominal pain Technique: 2.5 mm axial scans were obtained through the abdomen and pelvis following intravenous adm inistration of 100 cc of Omnipaque 350. Dose reduction technique was used on this scan by utilizing a utomated exposure control and iterative reconstruction technique. The dose-length product (DLP) was 1 531.89 mGy-cm. COMPARISON: 05/09/2016 Findings: Scans through the lung bases are unremarkable. There is diffuse fatty infiltration of the liver. Cholecystectomy clips are present. The spleen, panc reas, adrenals and kidneys are within normal limits. No evidence of aortic aneurysm. No lymphadenop athy. There is wall thickening and pericolic inflammatory stranding involving the distal sigmoid colon and rectum. There is underlying diverticulosis. No abscess or free air evident. Images through the pelvis were performed. Urinary bladder unremarkable. No pelvic mass seen. Patient is post hysterectomy. Impression: Findings most consistent with acute diverticulitis of the distal sigmoid colon. No abscess or free ai r. Diffuse fatty infiltration of liver. Reviewed, dictated and finalized at location . Impression: Findings most consistent with acute diverticulitis of the distal sigmoid colon. No abscess or free air. Diffuse fatty infiltration of liver.
[2023-01-08 09:26] LABS: Hematocrit 44.3 % (35.0-49.0); Hemoglobin 13.5 g/dL (12.0-15.0); Mean Corpuscular HGB Conc 30.5 g/dL (32.0-36.0); Mean Corpuscular Hemoglobin 29.2 pg (27.0-31.0); Mean Corpuscular Volume 95.9 fL (78.0-102.0); Mean Platelet Volume 9.8 fl (9.2-11.8); Platelet Count Result 296 K/mm3 (150-420); Red Blood Count 4.62 M/mm3 (4.20-5.40); Red Cell Distribution Width 12.7 % (11.6-14.4); White Blood Count 17.3 K/mm3 (4.8-10.8)
[2023-01-08 10:06] LABS: Alanine Aminotransferase 33 U/L (14-59); Alkaline Phosphatase 93 U/L (46-116); Anion Gap 10 mmol/L (8-16); Aspartate Amino Transferase 22 U/L (15-37); Bilirubin,Total 1.2 mg/dL (0.00-1.00); Blood Urea Nitrogen 14 mg/dL (7-18); Calcium 8.9 mg/dL (8.5-10.1); Carbon Dioxide 26 mmol/L (21-32); Chloride 104 mmol/L (98-108); Estimated Glomerular Filt Rate > 60; Glucose 140 mg/dL (70-99); Lipase 22 U/L (16-77); Osmolality Calculated 292 mOsm/kg (285-295); Potassium 4.5 mmol/L (3.5-5.1); Sodium 140 mmol/L (136-145); Total Protein 7.1 g/dL (6.4-8.2)
[2023-01-08 10:20] LABS: CRP 16.7 mg/dL (0.0-0.9)
== END 2023-01-08 09:17 | disposition home or self-care (01) ==
PROVIDERS: PCP Family Medicine; Visit Provider Family Medicine
DX: R10.9 Unspecified abdominal pain (principal); K57.92 Diverticulitis of intestine, part unspecified, without perforation or abscess without bleeding; K76.0 Fatty (change of) liver, not elsewhere classified
CPT/HCPCS: 36415; 74177; 80053; 83690; 85027; 86140; Q9967

== ENCOUNTER 2023-07-15 08:50 | Outpatient (RCR) | payer OTHER, SELFPAY ==
--- NOTE | 2023-07-15 15:15 | BUOTOPEVAL ---
Assessment and note entered by Brianna Stern OT Evaluation Information Assessment Status Evaluation Diagnosis L lateral epicondylitis Onset 06/20/23 Subjective Information The patient reports 1/10 pain at evaluation and does not know when the pain started but reported that she is used to pain in L elbow. The patient denies a pacemaker. The patient reports taking pain medication twice a day and uses Vulteran at night. The patient reports that sweeping is difficult, lifting a gallon of milk, carrying grocery bags and lifting a large cup for drinking. The patient reports numbness and tingling categorized as moderate to severe at the end of each day and states that she has to pop her elbow because it gets locked up. She stated that the pain is worst at the end of the day and she massages it at home. Reported Pain Level Pain Score 1: Self Report Assessment OT Clinical Summary The patient is a 48 year old female who was referred to outpatient OT due to L lateral epicondylitis. 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 The patient scored a 56.8% on QuickDASH questionnaire at [facility] demonstrating moderate to severe impairment with use of L UE. The patient requires skilled OT to address these deficits and return to PLOF. Plan of Care Interventions Therapeutic Exercise,Manual Therapy,Neuro Re- education,Therapeutic Activities,Hot Pack/Cold Pack,Electrical Stimulation,Sensory Integrative Techn,Self-Care/Home Management,Prosthetic Training,Check Out for Orthotic/Pr,Ultrasound OT Services Indicated Yes Treatment Frequency and 2x/week for 10 visits. Duration These treatments will address the objective and functional deficits as defined above. The patient will be advanced safely and appropriately in order for the patient to progress towards his/her prior level of function. Additional exercises will be introduced and as well as a comprehensive home exercise program upon discharge, if needed, ?to ensure carryover of functional gains achieved in the clinic. This treatment plan has been reviewed and agreement upon by the patient.
--- NOTE | 2023-08-26 11:38 | OTOPDC ---
Assessment and note entered by Brianna Stern, OT Evaluation Information Assessment Status Discharge Diagnosis L lateral epicondylitis Subjective Information The patient reports 0/10 pain while at rest at the time of discharge and 4/10 pain when using her arm and gripping at the same time stating that the pain is, severe. 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 She reports that when she is performing exercises with her daughter that her arm will lock up and then need to pop before she is able to do anything else with that arm. She states that she is constantly rubbing and massaging her L elbow because most of the time it feels like a dull ache that affects her ability to perform ADLs. 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 The patient demonstrates no progress with pain symptoms when grasping and lifting in conjunction with each other leading to inability to perform work tasks without severe pain and tingling. The patient demonstrates discomfort while maintaining wide senior oracle soa developer and prolonged gripping/movement of L UE. The patient had two weeks off from work due to needing to help with family where the patient was able to rest her arm more than normal; this could be the cause of increased senior oracle soa developer strength with decreased discomfort, the patient continues to demonstrate pain during any grasp/lifting activity with L UE and is unable to perform ADLs/IADLs and work tasks without discomfort and pain. The patient is unable to take off any more time from work as she has to provide an income for her family. The patient is discharged at this time due to no change in pain symptoms during daily ADLs and work tasks. Plan of Care OT Services Indicated No
== END 2023-08-26 13:30 | disposition home or self-care (01) ==
LOC: CHSOT 08:50
PROVIDERS: PCP Family Medicine
DX: M25.522 Pain in left elbow (principal); M77.12 Lateral epicondylitis, left elbow
CPT/HCPCS: 97014; 97110; 97140; 97165; 97530; G0283

== ENCOUNTER 2024-01-02 10:59 | Emergency (ER) | payer OTHER, SELFPAY ==
--- NOTE | ~2024-01-02 | CT_ITS ---
EXAMINATION: CT BRAIN W/O DATE: 01/02/2024 11:43 INDICATION: Conversion disorder TECHNIQUE: Computed tomography (CT) of the head was performed without intravenous contrast. The dose- length product was 605.33 mGy-cm. Automated exposure control and iterative reconstruction technique w ere employed. COMPARISON: MRI brain dated 04/26/2022 FINDINGS: Normal brain parenchymal volume for age. Normal londono-white differentiation. No acute intrac ranial hemorrhage, infarction, mass or mass effect. No ventriculomegaly or midline shift. Midline sagittal images demonstrate a normal corpus callosum, c raniovertebral junction and sella turcica. Basilar cisterns are patent. Paranasal sinuses and mastoids are pneumatized. No depressed skull fractures. IMPRESSION: 1. No acute intracranial abnormality. Reviewed, dictated and finalized at location B.
[2024-01-02 11:17] VITALS: BP 138/78; O2SAT 97
--- NOTE | 2024-01-02 11:18 | ECG_ITS ---
SEE SCANNED COPY FOR CONFIRMED REPORT MTDD
[2024-01-02 11:20] VITALS: PULSE 72
[2024-01-02] MEDS: ALPRAZolam (*CRX) 0.5 MG TABLET PO (11:28)
[2024-01-02 11:31] VITALS: BP 124/87; PULSE 66; RESP 18; O2SAT 100
[2024-01-02 11:44] LABS: Basophils Absolute Auto 0.03 K/mm3 (0.00-0.10); Basophils Percent Auto 0.5 % (0.0-1.0); Eosinophils Percent Auto 1.7 % (1.0-6.0); Hematocrit 39.2 % (35.0-49.0); Hemoglobin 12.6 g/dL (12.0-15.0); Immature Granulocyte Absolute 0.02 K/mm3 (0.00-0.00); Immature Granulocyte Percent A 0.3 % (0.0-0.0); Lymphocytes Absolute Auto 1.88 K/mm3 (1.10-4.50); Lymphocytes Percent Auto 32.6 % (18.0-42.0); Mean Corpuscular HGB Conc 32.1 g/dL (32-36); Mean Corpuscular Hemoglobin 28.5 pg (27.0-31.0); Mean Corpuscular Volume 88.7 fL (78.0-102.0); Mean Platelet Volume 9.6 fl (9.2-11.8); Monocytes Absolute Auto 0.49 K/mm3 (0.10-0.90); Monocytes Percent Auto 8.5 % (2.0-11.0); Neutrophils Absolute Auto 3.24 K/mm3 (1.70-7.20); Neutrophils Percent Auto 56.4 % (50.0-70.0); Platelet Count Result 292 K/mm3 (150-420); Red Blood Count 4.42 M/mm3 (4.20-5.40); White Blood Count 5.8 K/mm3 (4.8-10.8)
[2024-01-02 11:49] VITALS: BP 135/84; PULSE 64; RESP 19; O2SAT 97
[2024-01-02 12:01] VITALS: BP 139/75; PULSE 63; RESP 16; O2SAT 100
[2024-01-02 12:04] LABS: Alanine Aminotransferase 63 U/L (14-59); Albumin Level 3.7 g/dL (3.4-5.0); Alkaline Phosphatase 68 U/L (46-116); Anion Gap 11 mmol/L (4-12); Aspartate Amino Transferase 30 U/L (15-37); Bilirubin,Total 0.3 mg/dL (0.00-1.00); Blood Urea Nitrogen 14 mg/dL (7-18); Calcium 8.4 mg/dL (8.5-10.1); Carbon Dioxide 28 mmol/L (21-32); Chloride 105 mmol/L (98-108); Estimated Glomerular Filt Rate > 60; Glucose 77 mg/dL (70-99); Osmolality Calculated 297 mOsm/kg (285-295); Potassium 4.5 mmol/L (3.5-5.1); Sodium 144 mmol/L (136-145); Total Protein 6.9 g/dL (6.4-8.2)
--- NOTE | 2024-01-02 12:15 | PC.NURSE ---
PT RETURNED FROM BATHROOM, AMBULATING WITHOUT DIFFICULTY, GAIT STEADY, SPEECH CLEAR AT THIS TIME, NO VISIBLE TREMORS.
--- NOTE | 2024-01-02 12:15 | PC.NURSE ---
PT RETURN TO B
[2024-01-02 12:31] LABS: Appearance Urine Clear (Clear); Bilirubin Urine Negative (Negative); Blood Urine Negative (Negative); Color Urine Light Yellow (Yellow); Glucose Urine UA Negative (Negative); Ketones Urine Negative (Negative); Leukocyte Esterase Ur Negative LEU/UL (Negative); Nitrate Urine Negative (Negative); Protein Urine Negative (Negative); Urobilinogen Urine 0.2 mg/dL (0.2-1.0)
[2024-01-02 12:41] LABS: Add Urine Microscopic? NO
--- NOTE | 2024-01-02 12:43 | ED.NEUROSD ---
HPI - Neuro Symptoms/Deficit General Chief Complaint: Neuro Symptoms/Deficit Stated Complaint: conversion disorder Time Seen by Provider: 01/02/24 11:09 Source: patient and family Mode of arrival: ambulatory Limitations: no limitations History of Present Illness HPI Narrative: this is a 48-year-old female that has a history of conversion disorder that presents with some stress and anxiety and with mildly slurred heard speech that she apparently has with with her current conversion disorder, neurologically the patient is intact no headaches no blurry vision no chest pain abdominal pain or shortness of breath no flank pain no fever chills. Patient states that there has been stressors with some recent family member passing away. She has had conversion disorders in the past and this is similar to her past disorders. Onset (ago): hour(s) Timing confirmed by: spouse Location: speech Severity: mild Quality: weak Context: gradual onset Related Data Home Medications Medication Instructions Recorded Confirmed aripiprazole 10 mg tablet 10 mg PO DAILY 01/02/24 01/02/24 gabapentin 100 mg capsule 100 mg 01/02/24 Allergies Allergy/AdvReac Type Severity Reaction Status Date / Time No Known Allergies Allergy Mild Verified 01/02/24 11:15 Review of Systems Review of Systems: All systems reviewed & are unremarkable except as noted in HPI and below PMFSH Past Medical History Medical History Depression Overweight Surgical History Surgical History History of cholecystectomy History of hysterectomy Family History Family History Sibling Hypertension Mother Hypertension Grandparent Cerebrovascular accident Father Cardiomyopathy Social History Social History Smoking status: Never smoker Alcohol intake: current Drinks per week: 0 Alcohol use details: social Substance use: never Substance use type: does not use Living arrangements: with family Additional living arrangements comments: . 3 Children. 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 Gender identity (if verbalized by the patient): Female Spiritual care concerns: No Exam Const: General: healthy appearing, no acute distress and alert Nutritional Appearance: well nourished Orientation/consciousness: patient oriented x3 HENMT: Head: normal to inspection Ears: external ears normal Face/Nose/Sinus: Normal external nose present Face and sinus: normal facial exam Mouth: Yes Normal oral and palatal mucosa present Eyes: Conjunctivae: conjunctivae normal Pupils: Equal, round and reactive pupils present EOM: EOMs intact bilaterally Neck: Neck: normal visual inspection, no lymphadenopathy and no meningeal signs Chest: Chest palpation & inspection: normal inspection of the chest Resp: Effort & Inspection: normal respiratory effort Auscultation: clear to auscultation bilaterally Cardio: Rate: regular rate Rhythm: regular rhythm GI: GI Palp: Yes Soft to palpation Auscultation: normal bowel sounds Back/Spine/Pelvis: Back: no CVA tenderness Skin: General skin exam: normal color Rashes: no rashes Neuro: General: patient oriented x3, moves all extremities, no meningeal signs, no focal motor deficits and CN's II-XI intact bilaterally Cranial nerves: Yes Nystagmus not present Speech: normal speech Extrem: General: normal to inspection Psych: Mental Status: mental status grossly normal Affect: Anxious affect present Course Course Emergency Course: Patient has CT scan of the brain performed which shows no acute abnormalities EKG shows normal sinus rhythm labs including urinalysis were within normal limits. Patient did receive a dose of alprazolam and pa
== END 2024-01-02 12:55 | disposition home or self-care (01) ==
PROVIDERS: Emergency Provider Emergency Medicine; PCP Family Medicine
DX: F44.7 Conversion disorder with mixed symptom presentation (principal)
CPT/HCPCS: 36415; 70450; 80053; 81003; 85025; 93005; 99284; A4565; A9270